=== PATIENT | female | born 1975 | race Asian ===

== ENCOUNTER 2017-01-30 02:36 | Emergency (ER) | payer BC ==
--- NOTE | 2017-01-30 03:53 | ED ---
Erickson Overton Rebecca, scribed for Uday Cooper MD on 01/30/17 at 0314 . - HPI Summary HPI Summary: Pt is a 41 y/o F who presents to ED 11 weeks , c/o vaginal bleeding. Bleeding began yesterday at 1700 and has been intermittent since onset. Bleeding ceased, then continued only when urinating and has now increased in severity. Associated pain is currently moderate, ranked 5/10 and characterized as cramping. Last seen by her qa reviewer on January 05. Discussed with her qa reviewer, who referred her to [facility] ED. - History of Current Complaint Chief Complaint: EDVaginalBleeding Stated Complaint: 11 WKS PREG/VAGINAL BLEEDING Time Seen by Provider: 01/30/17 03:08 Hx Obtained From: Patient Chief Complaint: Vaginal Bleeding Onset/Duration: Started Hours Ago, Still Present Timing: Intermittent Current Severity: Moderate Pain Intensity: 5 Character: Cramping Aggravating Factors: Nothing Alleviating Factors: Nothing Associated Signs and Symptoms: Positive: Vaginal Bleeding or Discharge - Bleeding - Allergies/Home Medications Allergies/Adverse Reactions: Allergies Allergy/AdvReac Type Severity Reaction Status Date / Time codeine Allergy Shortness Uncoded 12/16/16 12:20 of Breath PMH/Surg Hx/FS Hx/Imm Hx Cardiovascular History: Denies: Hx Coronary Artery Disease Respiratory History: Reports: Hx Asthma Infectious Disease History: No Infectious Disease History: Denies: Traveled Outside the [place] in Last 30 Days - Family History Known Family History: Negative: Cardiac Disease, Hypertension, Diabetes - Social History Alcohol Use: None Substance Use Type: Reports: None Smoking Status (MU): Never Smoked Tobacco Have You Smoked in the Last Year: No Review of Systems Negative: Fever Positive: other - Vaginal bleeding with associated pain All Other Systems Reviewed And Are Negative: Yes Physical Exam - Physical Exam Triage Information Reviewed: Yes Vital Signs Reviewed: Yes Appearance: Positive: Well-Appearing, No Pain Distress Skin: Positive: Warm Head/Face: Positive: Normal Head/Face Inspection Eyes: Positive: GILLIAN ENT: Positive: Hearing grossly normal Neck: Positive: Supple Respiratory/Lung Sounds: Positive: Clear to Auscultation, Breath Sounds Present Cardiovascular: Positive: RRR Abdomen Description: Positive: Nontender, Soft Bowel Sounds: Positive: Present Neurological: Positive: Alert, Oriented to Person Place, Time Diagnostics - Vital Signs Vital Signs Temp Pulse Resp BP Pulse Ox 07/16/17 02:56 98.2 F 66 20 113/82 99 01/30/17 02:45 98.7 F 62 18 113/82 100 - Laboratory Result Diagrams: 01/30/17 04:21 Lab Statement: Any lab studies that have been ordered have been reviewed, and results considered in the medical decision making process. - Ultrasound No standard instances Ultrasound Interpretation: Positive (See Comments) - US: Embryonic demise. Ultrasound Interpretation Completed By: Radiologist Re-Evaluation - Re-Evaluation First Eval Re-Evaluation Time: 04:38 Change: Unchanged Comment: Discussed US results with the pt. Course/Dx - Course Assessment/Plan: Pt is a 41 y/o F who presents to ED 11 weeks , c/o intermittent vaginal bleeding since 1700 yesterday. Bleeding ceased, then continued only when urinating and has now increased in severity. Associated pain is currently moderate, ranked 5/10 and characterized as cramping. Last seen by her qa reviewer on January 05. Discussed with her qa reviewer, who referred her to [facility] ED. US reveals embryonic demise. Discussed care of pt with Dr. Castillo who advised she call on Tuesday to schedule an appointment. Pt will be D/C to home with Dx of demise and a follow up with Dr. Castillo. She understands and agrees. Patient's medications reviewed this visit. - Diagnoses Provider Diagnoses: demise - Provider Notifications Discussed Care Of Patient With: Iram Castillo Time Discussed With Above Provider: 04:37 Instructed by Provider To: Other - Advised that she call the office on Tuesday Discharge - Discharge Plan Condition: Stable Disposition: HOME Patient Education Materials: Miscarriage (ED) Referrals: Iram Castillo MD [Medical Doctor] - 01/31/17 (Call on Tuesday to schedule an appointment. ) The documentation as recorded by the Erickson platt Rebecca accurately reflects the service I personally performed and the decisions made by me, Uday Cooper MD.
[2017-01-30 04:29] LABS: Hematocrit 38 % (35-47); Hemoglobin 12.5 g/dl (12.0-16.0); Mean Corpuscular HGB Conc 33 g/dl (31-36); Mean Corpuscular Hemoglobin 29 pg (27-31); Mean Corpuscular Volume 88 fL (80-97); Mean Platelet Volume 8 um3 (7.4-10.4); Red Blood Count 4.33 10^6/ul (4.0-5.4); Red Cell Distribution Width 14 % (10.5-15); White Blood Count 8.7 10^3/ul (3.5-10.8)
[2017-01-30 05:19] VITALS: BP 129/83
--- NOTE | 2017-01-30 11:11 | RAD ---
Indication: with vaginal bleeding and cramping. Real-time sonography of the was performed. There is a intrauterine noted with pole measuring 1.7 cm. Gestational sac size measures 3.5 cm. The estimated gestational age is 8 weeks 4 days. No heart activity is noted. No movement is noted. The right ovary measures 2.6 x 1.8 x 2.5 cm. Left ovary measures 2.3 x 1.2 x 2.5 cm. No free fluid is identified. IMPRESSION: There is a intrauterine gestational sac with a pole with no heartbeat or movement. This is consistent with demise.
== END 2017-01-30 05:23 | disposition home or self-care (01) ==
LOC: ED 02:36
DX: O02.1 Missed abortion (principal); Z88.5 Allergy status to narcotic agent
CPT/HCPCS: 36415; 76801; 84702; 85025; 86850; 86900; 86901; 99282

== ENCOUNTER 2017-01-31 15:07 | Day surgery (SDC) | payer BC ==
[2017-01-31] MEDS ORDERED: Buffered Lidocaine 0.9% SYRIN* 5 ML/SYR SYRINGE ONE (15:39)
[2017-01-31] MEDS ORDERED: Ondansetron INJ* 2 MG/ML VIAL IV ONE (16:13)
[2017-01-31] MEDS ORDERED: fentaNYL* 50 MCG/ML 2 ML VIAL (100 MCG VIAL) IV SLOW PU ONE (16:15)
[2017-01-31] MEDS ORDERED: fentaNYL* 50 MCG/ML 2 ML VIAL (100 MCG VIAL) ONE ×2 (16:19→16:32)
[2017-01-31] MEDS ORDERED: Ondansetron INJ* 2 MG/ML VIAL ONE ×2 (16:20→16:31)
[2017-01-31] MEDS ORDERED: ceFOXitin 2 GM IVPREMIX* 2 GM/50 ML BAG ONE (16:30)
[2017-01-31] MEDS ORDERED: Dexamethasone IV* 4 MG/ML 1 ML (4 MG) ONE (16:31)
[2017-01-31] MEDS ORDERED: Lidocaine 2% PF * 5 ML VIAL ONE (16:31)
[2017-01-31] MEDS ORDERED: Propofol* 10 MG/ML 20 ML BTL IV PUSH ONE (16:31)
[2017-01-31] MEDS ORDERED: Ketorolac INJ* 30 MG/ML 1 ML VIAL ONE (16:31)
[2017-01-31] MEDS ORDERED: Chloroprocaine 2%* 20 ML VIAL ONE (16:32)
[2017-01-31] MEDS ORDERED: KETAMINE HCL* 50 MG/ML 10 ML VIAL ONE (16:32)
[2017-01-31] MEDS ORDERED: Midazolam* 1 MG/ML 5 ML VIAL (5 MG) ONE (16:32)
[2017-01-31] MEDS ORDERED: DiMENhydriNATE IV* 50 MG/ML VIAL IV PUSH PRN (17:25)
[2017-01-31] MEDS ORDERED: fentaNYL* 50 MCG/ML 2 ML VIAL (100 MCG VIAL) IV PRN (17:25)
[2017-01-31] MEDS ORDERED: oxyCODONE/Acetamin 5/325 MG* TAB PO PRN (17:25)
[2017-01-31 19:40] VITALS: BP 124/80
--- NOTE | 2017-02-03 14:09 | OP ---
DATE OF OPERATION: 01/31/17 [facility] DATE OF : 79 SURGEON: Snehal Smith MD TEXTILE ARTIST: None. ANESTHESIOLOGIST: Dr. Linares ANESTHESIA: Spinal. PRE-OP DIAGNOSIS: Missed . POST-OP DIAGNOSIS: Incomplete . OPERATIVE PROCEDURE: Dilation, evacuation, and curettage. FINDINGS: Revealed products of conception stuck in the external cervical os. Minimal bleeding noted postprocedure. ESTIMATED BLOOD LOSS: Less than 100 cc. FLUIDS: 4500 cc of crystalloid. URINE OUTPUT: 200 cc of clear yellow urine. DESCRIPTION OF PROCEDURE: The patient was placed in dorsal lithotomy position. Legs were placed in candy cane stirrups. Perineum and vagina were prepped and draped in the sterile standard fashion. The patient was identified with universal protocol. A sterile catheter was placed for drainage of clear yellow urine. Catheter was removed. Sterile speculum was inserted. Cervix was visualized, grasped on the anterior lip with a single-tooth tenaculum. There was noted products of conception stuck at the external os, which was removed with sponge forceps. At that point, suction was then performed using 8-mm suction curette after dilating to a #9 Hegar dilator. After evacuation of the uterine contents, a sharp curettage was performed, which confirmed complete removal of intrauterine contents. Single-tooth tenaculum was removed. Sterile speculum was removed. All sponge, needle, instrument, and blade counts were correct throughout the case. The patient tolerated the procedure well and went to recovery room in stable condition. [id number]/[facility] #: [id number] [facility]
== END 2017-01-31 19:41 | disposition home or self-care (01) ==
LOC: OR 15:07
PROVIDERS: ATTEND Obstetrics & Gynecology
DX: O03.4 Incomplete spontaneous abortion without complication (principal); J45.909 Unspecified asthma, uncomplicated; Z88.5 Allergy status to narcotic agent
CPT/HCPCS: 88305; J0694; J1100; J1885; J2250; J2400; J2405; J2704; J3010

== ENCOUNTER 2018-01-25 08:13 | Inpatient (IN) | payer OTHER ==
[2018-01-25] MEDS ORDERED: Dinoprostone* 10 MG VAG.SUPP VAGINAL ONE (09:17)
--- NOTE | 2018-01-25 10:50 | HP ---
General Information - Reason for Visit Cervical ripening, age 42 at 39 weeks gestation - General Information Maternal Age: 42 Grav: 4 Para: 2 SAB: 1 IEA: 0 Estimated Due Date: 02/01/18 Determined By: Early Ultrasound Gestational Age in Weeks/Days: 39 0/7 Maternal Blood Type and Rh: O Positive - Results this Serology/RPR Result: Non-Reactive Rubella Result: Immune HBsAg Result: Negative HIV Result: Negative GBS Culture Result: Negative Past Medical History Delivery History: Hx Uncomplicated Vaginal Delivery Pertinent Past Medical History: See Records - asthma, ASCUS Pap, +HPV Pertinent Past Surgical History: See Records - D&E 2017 Pertinent Family History: Non-Contributory - Antepartal Records Antepartal Records: Reviewed, Complicated by: - advanced maternal age Review of Systems Constitutional: Uncomfortable - lost of hip, back, pelvic discomfort CV Complaint: No Respiratory: Shortness of Breath: Yes - lungs cleqar to auscultation, O2 sats 100% Gastrointestinal: No Nausea/Vomiting, Normal Bowel Movement Genitourinary: No Dysuria, No Bleeding, No Leaking Fluid Musculoskeletal: Back Pain, Pressure Neurological: No Headache, No Visual Changes Movement: Normal Exam Allergies/Adverse Reactions: Allergies codeine Allergy (Verified 01/25/18 09:27) Shortness of Breath T-97.8, P-84, R-20, BP-86/62, O2-100% Repeat BP 122/72 - Measurements Height: 5 ft 3 in Weight: 89.358 kg Body Mass Index (BMI): 34.9 Pre- Weight: 74.843 kg - Abdominal Exam Abdomen Exam: Fundal Height Consistent with Dates - mildly tender to palpation - Ultrasound/Biophysical Profile Ultrasound Status: Not Done Targeted Exam Findings See L&D Outpatient Visit Provider Note for Findings: N/A Estimated Weight: 8# Cervical Exam: Closed Effacement: Thick Station: High Presenting Part: Vertex Membrane Status: Intact Bleeding/Discharge: None EFM Findings - External Monitor Findings Baseline Heart Rate: 135 External Monitor Findings: Accelerations Present, No Pattern of Variable or Late Decelerations, Variability Moderate, Baseline Stable Contractions: Irregular, Mild, < 45 Seconds Assessment/Plan - Assessment 42 year old at 39 0/7 weeks gestation - Obstetrical Risk Factors Risk Factors Comment: Maternal age 42 - Plan [facility] OB: H&P Plan: Cervical Ripening - Date/Time of Admission Date of Admission: 01/25/18 Time of Admission: 09:28
[2018-01-25] MEDS ORDERED: Nalbuphine* 10 MG/ML 1 ML VIAL IV PRN (22:27)
[2018-01-25] MEDS ORDERED: Promethazine INJ(RESTRICTED)* 25 MG/ML 1 ML VIAL IV ONE (22:47)
--- NOTE | 2018-01-25 23:02 | PN ---
Progress Note - Progress Note Date of Service: 01/25/18 SOAP: Subjective: [Pt very uncomfortable, both with contractions and in her hips, back and pelvis continuously. Reports active FM. States "I just want this to be over."] Objective: [FHR Cat I- baseline 125/ mod isra/ + accels/ no decels UCs 2-4 minutes/ mild to moderate/ 40-60 seconds Maternal vital signs stable Bedside sono showed VTX position tonight at 2200 EFW 8# by Hema's Cervical exam: closed/ 80%/ posterior/ high ] Assessment: [42 year old at 39 0/7 weeks gestation, attempting cervical ripening prior to IOL No evidence of acidemia Maternal difficulty coping with discomforts of late and early labor, maternal fatigue] Plan: [Pt beatriz too frequently at this time to attempt another cervidil. Will try Nubain and Phenergan for pain relief. Pt has hx possible codeine allergy, rxn shortness of breath, no throat swelling or edema. Discussed with pharmacist , potential for cross reactivity with Nubain very low, discussed with pt and , they are comfortable with risk. Intermittent FM, will attempt to let pt sleep. May try another cervidil if ctx space out further. ]
[2018-01-25 23:04] LABS: ABS Basophils 0 10^3/ul (0-0.2); ABS Eosinophils 0.1 10^3/ul (0-0.6); ABS Lymphocytes 1.4 10^3/ul (1.0-4.8); ABS Neutrophils 7.6 10^3/ul (1.5-7.7); ABS Nucleated RBC 0 10^3/ul; Eosinophil % 1.2 % (0-6); Hematocrit 34 % (35-47); Hemoglobin 11.6 g/dl (12.0-16.0); Lymphocyte % 14.1 % (25-47); Mean Corpuscular HGB Conc 34 g/dl (31-36); Mean Corpuscular Hemoglobin 31 pg (27-31); Mean Corpuscular Volume 90 fL (80-97); Mean Platelet Volume 7.5 um3 (7.4-10.4); Nucleated Red Blood Cells % 0.1; Platelet Count 236 10^3/ul (150-450); Red Blood Count 3.81 10^6/ul (4.00-5.40); Red Cell Distribution Width 14 % (10.5-15); White Blood Count 10.2 10^3/ul (3.5-10.8)
[2018-01-26] MEDS ORDERED: OBEPIDURAL* 250 ML EPIDURAL ONE (09:59)
--- NOTE | 2018-01-26 10:11 | PN ---
Progress Note - Progress Note Date of Service: 01/26/18 Note: slept a little with meds, now having irreg contractions. Uncomfortable Cervix: 2-3cm, thick, maybe 50%, vtx -2, bulging membranes Will get epidural, then start pitocin
[2018-01-26] MEDS ORDERED: EPHEDrine (Pressors)* 50 MG/ML VIAL IV PUSH PRN (10:25)
[2018-01-26] MEDS ORDERED: Sodium Citrate/Citric Acid* 15 ML UDC PO PRN (10:25)
[2018-01-26] MEDS ORDERED: Phenylephrine IV* 40 MCG/ML 10 ML SYRINGE IV PUSH PRN (10:25)
[2018-01-26] MEDS ORDERED: Famotidine TAB* 20 MG PO PRN (10:25)
[2018-01-26] MEDS ORDERED: Oxytocin in LR* 20 UNITS/1,000 ML BAG IVPB SCH ×2 (11:00→22:00)
[2018-01-26] MEDS ORDERED: OBEPIDURAL* 250 ML EPIDURAL SCH (11:00)
--- NOTE | 2018-01-26 13:07 | PN ---
Progress Note - Progress Note Date of Service: 01/26/18 Note: comfortable after epidural. Contractions coupling 2 every 4-5 minutes. Cervix: 3cm, 70%, vtx -1 AROM clear fluid
--- NOTE | 2018-01-26 15:23 | PN ---
Progress Note - Progress Note Date of Service: 01/26/18 Note: starting to feel pressure. Contractions every 2-3 since AROM. Bloody show. FHTs 140, + accels, mod variability Cervix: 8cm, 90%, vtx -1
--- NOTE | 2018-01-26 18:34 | PN ---
Progress Note - Progress Note Date of Service: 01/26/18 Note: Soft, stretchy ant lip with urge to push at 1730, vtx at -1 Trial of pushing for 1 hr with no progress, lip persists, despite position changes. Pushing stopped, pt to rest, will allow baby to labor down, await stonger urge to push. FHTs with baseline 150, mod variability, some early decels.
[2018-01-26] MEDS ORDERED: Witch Hazel PAD* JAR TOPICAL PRN (21:45)
[2018-01-26] MEDS ORDERED: Acetaminophen TAB* 325 MG PO PRN (21:45)
[2018-01-26] MEDS ORDERED: Glycerin ADULT SUPP PR PRN (21:45)
[2018-01-26] MEDS ORDERED: Dibucaine 1% 28.35 GM TUBE PR PRN (21:45)
--- NOTE | 2018-01-26 21:52 | PN ---
Progress Note - Progress Note Date of Service: 01/26/18 Note: pt with stong urge to push, began pushing at 1935. Pushed for 1 hour with progress but then became tired and pushing less effective. Dr. Castillo called to consult re vacuum delivery. See her delivery note
[2018-01-26] MEDS ORDERED: Ammonia Inhalant* 1 EA AMP ONE (23:17)
[2018-01-27] MEDS: Ibuprofen TAB* 600 MG PO PRN ×4 (01:04→20:29)
[2018-01-27] MEDS ORDERED: oxyCODONE/Acetamin 5/325 MG* TAB PO PRN (04:18)
[2018-01-27] MEDS ORDERED: oxyCODONE/Acetamin 5/325 MG* TAB ONE (04:25)
[2018-01-27 06:04] LABS: Hematocrit 28 % (35-47); Hemoglobin 9.4 g/dl (12.0-16.0); Mean Corpuscular HGB Conc 33 g/dl (31-36); Mean Corpuscular Hemoglobin 30 pg (27-31); Mean Corpuscular Volume 90 fL (80-97); Mean Platelet Volume 7.3 um3 (7.4-10.4); Platelet Count 208 10^3/ul (150-450); Red Blood Count 3.15 10^6/ul (4.00-5.40); Red Cell Distribution Width 14 % (10.5-15); White Blood Count 21.8 10^3/ul (3.5-10.8)
[2018-01-27] MEDS: Ferrous Gluconate TAB* 324 MG TAB PO SCH ×2 (08:02→20:28)
[2018-01-27] MEDS: Docusate CAP* 100 MG PO SCH ×3 (08:02→20:28)
[2018-01-28] MEDS: Ibuprofen TAB* 600 MG PO PRN (04:59)
[2018-01-28] MEDS: Ferrous Gluconate TAB* 324 MG TAB PO SCH (07:54)
[2018-01-28] MEDS: Docusate CAP* 100 MG PO SCH (07:54)
[2018-01-28 08:11] VITALS: BP 108/62
== END 2018-01-28 11:39 | disposition home or self-care (01) | DRG 560 ==
LOC: MCHOBOUT 08:13 → MCHOB 09:30
PROVIDERS: ADMIT Midwife; ATTEND Midwife
PROC: 10D07Z6 Extraction of Products of Conception, Vacuum, Via Natural or Artificial Opening (ICD-10-PCS; principal; 2018-01-26)
PROC: 3E033VJ Introduction of Other Hormone into Peripheral Vein, Percutaneous Approach (ICD-10-PCS; 2018-01-26)
PROC: 10907ZC Drainage of Amniotic Fluid, Therapeutic from Products of Conception, Via Natural or Artificial Opening (ICD-10-PCS; 2018-01-26)
PROC: 0KQM0ZZ Repair Perineum Muscle, Open Approach (ICD-10-PCS; 2018-01-26)
DX: O75.81 Maternal exhaustion complicating labor and delivery (principal); O70.1 Second degree perineal laceration during delivery; O99.52 Diseases of the respiratory system complicating childbirth; J45.909 Unspecified asthma, uncomplicated; Z3A.39 39 weeks gestation of pregnancy; Z37.0 Single live birth
CPT/HCPCS: 36415; 85025; 85027; 86850; 86900; 86901; A9270-GY; J2300; J2550